=== PATIENT | male | born 1990 | race African-American/Black ===

== ENCOUNTER 2019-07-10 21:33 | Emergency (ER) | payer BC ==
[~2019-07-10] VITALS: Ht 170.2 cm; Wt 111.4 kg
[2019-07-10] MEDS ORDERED: OMEP40CA13 PO (22:53)
[2019-07-10 22:59] VITALS: BP 111/73
== END 2019-07-10 22:58 | disposition home or self-care (01) ==
LOC: ER 21:34
DX: R14.0 Abdominal distension (gaseous) (principal); Z79.899 Other long term (current) drug therapy
CPT/HCPCS: 99282